=== PATIENT | male | born 1970 | race Two or more races ===

== ENCOUNTER 2018-12-14 10:43 | Emergency (ER) | payer OTHER ==
[~2018-12-14] VITALS: Ht 172.7 cm; Wt 91.0 kg
--- NOTE | 2018-12-14 11:33 | RAD ---
CT head and cervical spine without contrast History: FALL ON ICE, HIT POSTERIOR ASPECT OF HEAD Technique: Noncontrast CT imaging was performed of the head and cervical spine. Multiplanar reconstruction images are submitted. Exposure: One or more of the following individualized dose reduction techniques were utilized for this examination: 1. Automated exposure control 2. Adjustment of the mA and/or kV according to patient size 3. Use of iterative reconstruction technique. Head CT Comparison: None Findings: No convincing acute extra-axial or parenchymal hemorrhage is identified. There is no significant intra-axial mass effect, midline shift, or extra-axial fluid collection. The valles-white differentiation of the major vascular territories is preserved. The ventricles, sulci, and cisterns are within normal limits in size and configuration. Mastoid air cells are aerated. There is large likely mucus retention cyst of the inferior left maxillary sinus, mild inferior right maxillary sinus mucosal thickening. There is some deviation nasal septum to the right. There is no significant focal calvarial abnormality. Impression: 1. No acute intracranial abnormality is identified. Cervical spine CT Comparison: None Findings: No acute cervical spine fracture is identified. Vertebral body stature is maintained. Atlanto-axial distance is within normal limits. There is appropriate alignment of lateral masses of C1 relative to C2. Occipital condylar-C1 relationship is maintained. There is moderate degenerative disc disease C5-6, minimally at C3-4 and C6-7. There are minimal disc osteophyte complexes greatest C3-4, C5-6, C6-7. There is likely mild central canal stenosis 9-10 mm at C6-7, probable borderline narrowing at C3-C4. Uncovertebral degenerative change contributes to minimal narrowing of the right C5-6 neural foramen. There is straightening of the cervical spine. There is negligible anterior spondylolisthesis C7-T1. There is dental caries affecting the third from posterior right mandibular tooth. There is dental caries and periapical lucency adjacent to second, third, fourth maxillary teeth counting from posteriorly. There is also periapical lucency about the second and third right maxillary teeth counting from posteriorly. Impression: 1. No acute cervical spine fracture is identified. 2. There is multilevel degenerative disc disease and spondylosis greatest C3-4, C5-6, C6-7. There is likely mild spinal stenosis C6-7. 3. There is multifocal dental caries and also periapical lucency near several teeth as stated which may be due to loosening or infection. Electronically signed by: Jimi Benson MD (12/14/2018 11:29 AM) [facility]
[2018-12-14] MEDS ORDERED: NAPR-683 PO (11:45)
--- NOTE | 2018-12-14 11:45 | PHYS DOC ---
Past History Past Medical History: No Pertinent History Past Surgical History: No Surgical History Smoking: Cigarettes Alcohol Use: None Drug Use: None Adult General Chief Complaint Chief Complaint: MECHANICAL FALL HPI HPI Patient is a 48 year old [place] speaking male who presents with complaining of a fall and injury to his head. History was taking with help of patient's coworker translation. Patient states he slipped on wet floor at his fourth and landed on his back and had injury to his his head and neck without loss of consciousness and other injuries. Patient rated his pain 7 and denies focal neuro deficit, fever and chills, blurred vision, nausea and vomiting. Patient walked to emergency room without problem. Review of Systems Review of Systems Constitutional: Denies fever or chills [] Eyes: Denies change in visual acuity, redness, or eye pain [] HENT: Denies nasal congestion or sore throat [] Respiratory: Denies cough or shortness of breath [] Cardiovascular: No additional information not addressed in HPI [] GI: Denies abdominal pain, nausea, vomiting, bloody stools or diarrhea [] : Denies dysuria or hematuria [] Musculoskeletal: Denies back pain or joint pain [] Integument: Denies rash or skin lesions [] Neurologic: Reports headache, denies focal weakness or sensory changes [] Endocrine: Denies polyuria or polydipsia [] All other systems were reviewed and found to be within normal limits, except as documented in this note. Allergies Allergies Allergies Coded Allergies Type Severity Reaction Last Updated Verified No Known Drug Allergies 12/14/18 No Physical Exam Physical Exam Constitutional: Well developed, well nourished, mild distress, non-toxic appearance. [] HENT: Normocephalic, atraumatic. Eyes: PERRLA, EOMI, conjunctiva normal, no discharge. [] Neck: Normal range of motion, no tenderness, supple, no stridor. [] Cardiovascular:Heart rate regular rhythm, no murmur [] Lungs & Thorax: Bilateral breath sounds clear to auscultation [] Abdomen: Bowel sounds normal, soft, no tenderness, no masses, no pulsatile masses. [] Skin: Warm, dry, no erythema, no rash. [] Back: No tenderness, no CVA tenderness. [] Extremities: No tenderness, no cyanosis, no clubbing, ROM intact, no edema. [] Neurologic: Alert and oriented X 3, no focal deficits noted. [] Psychologic: Affect normal, judgement normal, mood normal. [] Current Patient Data Vital Signs Vital Signs Date Time Temp Pulse Resp B/P (MAP) Pulse Ox O2 Delivery O2 Flow Rate FiO2 12/14/18 10:54 98.1 70 18 98 Room Air EKG EKG [] Radiology/Procedures Radiology/[place] [address] IMAGING REPORT Signed PATIENT: JENNY JOY ACCOUNT: [id number] : 1970 LOCATION: ER AGE: 48 SEX: M EXAM STATUS: REG ER ORD. PHYSICIAN: KEVIN MORILLO MD REASON: fall PROCEDURE: CT HEAD AND CERVICAL SPINE WO CT head and cervical spine without contrast History: FALL ON ICE, HIT POSTERIOR ASPECT OF HEAD Technique: Noncontrast CT imaging was performed of the head and cervical spine. Multiplanar reconstruction images are submitted. Exposure: One or more of the following individualized dose reduction techniques were utilized for this examination: 1. Automated exposure control 2. Adjustment of the mA and/or kV according to patient size 3. Use of iterative reconstruction technique. Head CT Comparison: None Findings: No convincing acute extra-axial or parenchymal hemorrhage is identified. There is no significant intra-axial mass effect, midline shift, or extra-axial fluid collection. The valles-white differentiation of the major vascular territories is preserved. The ventricles, sulci, and cisterns are within normal limits in size and configuration. Mastoid air cells are aerated. There is large likely mucus retention cyst of the inferior left maxillary sinus, mild inferior right maxillary sinus mucosal thickening. There is some deviation nasal septum to the right. There is no significant focal calvarial abnormality. Impression: 1. No acute intracranial abnormality is identified. Cervical spine CT Comparison: None Findings: No acute cervical spine fracture is identified. Vertebral body stature is maintained. Atlanto-axial distance is within normal limits. There is appropriate alignment of lateral masses of C1 relative to C2. Occipital condylar-C1 relationship is maintained. There is moderate degenerative disc disease C5-6, minimally at C3-4 and C6-7. There are minimal disc osteophyte complexes greatest C3-4, C5-6, C6-7. There is likely mild central canal stenosis 9-10 mm at C6-7, probable borderline narrowing at C3-C4. Uncovertebral degenerative change contributes to minimal narrowing of the right C5-6 neural foramen. There is straightening of the cervical spine. There is negligible anterior spondylolisthesis C7-T1. There is dental caries affecting the third from posterior right mandibular tooth. There is dental caries and periapical lucency adjacent to second, third, fourth maxillary teeth counting from posteriorly. There is also periapical lucency about the second and third right maxillary teeth counting from posteriorly. Impression: 1. No acute cervical spine fracture is identified. 2. There is multilevel degenerative disc disease and spondylosis greatest C3-4, C5-6, C6-7. There is likely mild spinal stenosis C6-7. 3. There is multifocal dental caries and also periapical lucency near several teeth as stated which may be due to loosening or infection. Electronically signed by: Kae Kincaid MD (12/14/2018 11:29 AM) [facility] DICTATED AND SIGNED BY: KAE KINCAID MD DATE: 12/14/18 1120 CC: MADAY MATA MD; KEVIN MORILLO MD ~ Course & Med Decision Making Course & Med Decision Making Pertinent Imaging studies reviewed. (See chart for details) Evaluation of patient in ER showed 48-year-old male patient with a fall at work and complaining of pain in his head and neck. Patient had unremarkable physical exam and CT head and neck and treated with ibuprofen in ER and felt better. Plan to discharge patient home with diagnosis of closed head injury. Dragon Disclaimer Dragon Disclaimer This electronic medical record was generated, in whole or in part, using a voice recognition dictation system. Departure Departure: Impression: Primary Impression: Closed head injury Additional Impressions: Acute cervical myofascial strain Fall Disposition: HOME, SELF-CARE (at 1144) Condition: STABLE Referrals: MADAY MATA MD (PCP) Patient Instructions: Cervical Strain and Sprain with Rehab-SportsMed, Head Injury, Adult Additional Instructions: Drink plenty of liquids Follow-up with your primary care physician in 3-5 days Return to ER if not getting better Apply ice on the affected area Scripts Naproxen (NAPROSYN) 500 Mg Tablet 500 MG PO BID for pain, #20 TAB Prov: KEVIN MORILLO MD 12/14/18 Problem Qualifiers KEVIN MORILLO MD Dec 14, 2018 11:45
[2018-12-14 11:53] VITALS: BP 124/80
[2018-12-14] MEDS ORDERED: IBUPROFEN 800 MG TABLET. PO ONE (12:00)
== END 2018-12-14 11:53 | disposition home or self-care (01) ==
LOC: ER 10:43
DX: S16.1XXA Strain of muscle, fascia and tendon at neck level, initial encounter (principal); S09.8XXA Other specified injuries of head, initial encounter; F17.210 Nicotine dependence, cigarettes, uncomplicated; W01.198A Fall on same level from slipping, tripping and stumbling with subsequent striking against other object, initial encounter; Y93.89 Activity, other specified; Y92.89 Other specified places as the place of occurrence of the external cause; Y99.8 Other external cause status
CPT/HCPCS: 70450; 72125; 99284-25